=== PATIENT | female | born 1995 | race Caucasian/White ===

== ENCOUNTER 2022-11-24 01:51 | Emergency (ER) | payer BC ==
[2022-11-24] MEDS ORDERED: Ondansetron 4 MG Tab.DIS PO ONE (01:53)
[2022-11-24] MEDS ORDERED: Sodium Chloride 0.9% 20 ML SDV IV PRN (02:40)
[2022-11-24] MEDS ORDERED: Sodium Chloride 0.9% 2.5 ML Syringe FLUSH PRN (02:40)
[2022-11-24] MEDS ORDERED: Sodium Chloride 0.9% 10 ML Syringe FLUSH PRN (02:40)
[2022-11-24] MEDS ORDERED: Prochlorperazine 10 MG/2 ML SDV IVPUSH ONE (02:42)
[2022-11-24] MEDS ORDERED: Sodium Chloride 0.9% 1,000 ML IV SCH (02:45)
[2022-11-24 02:52] LABS: BASOPHILS PERCENT AUTO 0.1 % (0.0-1.5); HEMATOCRIT 44.9 % (36.0-46.0); HEMOGLOBIN 16.3 g/dL (12.0-16.0); LYMPHOCYTES ABSOLUTE AUTO 0.2 K/uL (0.6-2.4); LYMPHOCYTES PERCENT AUTO 1.7 % (16.0-40.0); MEAN CORPUSCULAR HGB CONC 36.3 g/dL (31.0-37.0); MEAN CORPUSCULAR VOLUME 85.5 fL (80.0-98.0); MONOCYTES ABSOLUTE AUTO 0.3 K/uL (0.0-0.8); MONOCYTES PERCENT AUTO 2.3 % (0.0-15.0); NEUTROPHILS PERCENT AUTO 95.9 % (48.0-80.0); NRBC ABSOLUTE 0 K/uL; PLATELET COUNT,PLT 175 K/uL (150-400); RED BLOOD CELL COUNT 5.25 M/uL (4.30-5.90); WHITE BLOOD CELL COUNT,WBC 11.44 K/uL (4.0-11.0)
[2022-11-24 03:56] LABS: A/G RATIO 1.2 (0.9-1.6); ALBUMIN 4.1 g/dL (3.4-5.0); BILIRUBIN TOTAL 1.1 mg/dL (0.2-1.0); CARBON DIOXIDE,CO2 24.9 mmol/L (21.0-32.0); CREATININE 1.1 mg/dL (0.6-1.0); EST CRCL DRUG DOSING (CG) 68.52 mL/min; POTASSIUM,K 4.4 mmol/L (3.5-5.1); PROTEIN TOTAL,TP 7.4 g/dL (6.4-8.2)
== END 2022-11-24 03:38 | disposition home or self-care (01) ==
LOC: MW.ED 01:51
DX: E86.0 Dehydration (principal); Z88.8 Allergy status to other drugs, medicaments and biological substances; Z79.82 Long term (current) use of aspirin; Z79.899 Other long term (current) drug therapy
CPT/HCPCS: 36415; 80053; 83690; 84703; 85025; 96361; 96374; 99284; A9270; J0780; J3490; J7030